=== PATIENT | female | born 1995 | race Two or more races ===

== ENCOUNTER 2018-05-04 09:57 | Emergency (ER) | payer BC ==
[~2018-05-04] VITALS: Ht 152.4 cm; Wt 63.5 kg
[2018-05-04] MEDS ORDERED: DOLOGESIC 500-1 EACH PO (12:33)
== END 2018-05-04 13:04 | disposition home or self-care (01) ==
LOC: ER 09:57
DX: S96.811A Strain of other specified muscles and tendons at ankle and foot level, right foot, initial encounter (principal); X50.0XXA Overexertion from strenuous movement or load, initial encounter; Y93.01 Activity, walking, marching and hiking; Y92.89 Other specified places as the place of occurrence of the external cause; Y99.8 Other external cause status